=== PATIENT | female | born 1945 | race Caucasian/White ===

== ENCOUNTER 2019-07-16 08:36 | Outpatient (CLI) | payer MEDICARE, BC | END 2019-07-16 23:59 | disposition home or self-care (01) | LOC: CFH 08:36 | PROVIDERS: ATTEND Internal Medicine Cardiovascular Disease | DX: I08.1 Rheumatic disorders of both mitral and tricuspid valves (principal); E78.5 Hyperlipidemia, unspecified; I50.9 Heart failure, unspecified; Z85.3 Personal history of malignant neoplasm of breast | CPT/HCPCS: 93306 ==

== ENCOUNTER → 2020-07-18 | Outpatient (CLI) | payer MEDICARE, BC ==
[~2020-07-18] MED LIST: OMNIPAQUE 350 MG/ML, 100ML BOTTLE ONE
== END | disposition home or self-care (01) ==
LOC: CFH 11:37
PROVIDERS: ATTEND Family Medicine
DX: K76.0 Fatty (change of) liver, not elsewhere classified (principal); K43.9 Ventral hernia without obstruction or gangrene; M51.36 Other intervertebral disc degeneration, lumbar region; R18.8 Other ascites
CPT/HCPCS: 74177; 82565; Q9967

== ENCOUNTER 2020-11-24 09:14 | Day surgery (SDC) | payer MEDICARE, BC ==
[~2020-11-24] VITALS: Ht 157.5 cm; Wt 49.0 kg
[2020-11-24 09:49] VITALS: BP 116/60
[2020-11-24] MEDS ORDERED: ASPI-963 PO (10:00)
[2020-11-24] MEDS ORDERED: CARV6.252 PO (10:00)
[2020-11-24] MEDS ORDERED: ATOR20TA37 PO (10:01)
[2020-11-24] MEDS ORDERED: GABA600T7 PO (10:01)
[2020-11-24] MEDS ORDERED: ESTER C PO (10:02)
[2020-11-24] MEDS ORDERED: NIAC500C8 PO (10:03)
[2020-11-24] MEDS ORDERED: CALCIUM PO (10:03)
[2020-11-24] MEDS ORDERED: D3 PO (10:04)
[2020-11-24 10:29] LABS: BASOPHILS % (AUTO) 1 % (0-1); EOSINOPHILS % (AUTO) 0 % (1-7); LYMPHOCYTES % (AUTO) 5 % (22-44); MEAN CORPUSCULAR HGB CONC 33.8 g/dL (32.4-35.8); MEAN PLATELET VOLUME 8.2 fL (7.4-10.4); MONOCYTES % (AUTO) 8 % (2-9); NEUTROPHILS % (AUTO) 86 % (42-75); PLATELET COUNT 162 x10^3/uL (130-400); RED BLOOD COUNT 4.08 x10^6/uL (3.82-5.3)
[2020-11-24] MEDS ORDERED: VERAPAMIL 2.5 MG/ML, 2ML ONE (10:31)
[2020-11-24] MEDS ORDERED: HEPARIN 1,000 UNITS/ML, 10ML ONE (10:31)
[2020-11-24] MEDS ORDERED: MIDAZOLAM 1 MG/ML, 2ML ONE (10:31)
[2020-11-24] MEDS ORDERED: LIDOCAINE-MPF 1%, 5ML ONE (10:31)
[2020-11-24] MEDS ORDERED: FENTANYL PF 100 MCG/2ML ONE (10:31)
[2020-11-24 10:36] LABS: ANION GAP 8 mmol/L (5-15); CALCIUM 9.1 mg/dL (8.5-10.1); CHLORIDE 109 mmol/L (98-107)
[2020-11-24] MEDS ORDERED: SODIUM CHLORIDE 0.9% 1,000 ML IV SCH (11:00)
== END 2020-11-24 14:45 | disposition home or self-care (01) ==
LOC: CACL 09:14
PROVIDERS: ATTEND Internal Medicine Cardiovascular Disease
DX: I34.0 Nonrheumatic mitral (valve) insufficiency (principal); I42.0 Dilated cardiomyopathy; I27.20 Pulmonary hypertension, unspecified; I10 Essential (primary) hypertension; E78.5 Hyperlipidemia, unspecified; Z79.82 Long term (current) use of aspirin; Z79.899 Other long term (current) drug therapy; Z85.3 Personal history of malignant neoplasm of breast; Z90.11 Acquired absence of right breast and nipple
CPT/HCPCS: 36415; 80048; 82803; 85025; 93460; 99156; 99157; C1769; C1894; J1644; J2250; J3010; Q9967

== ENCOUNTER 2020-12-15 10:37 | Outpatient (CLI) | payer MEDICARE, BC | END 2020-12-15 23:59 | disposition home or self-care (01) | LOC: LAB 10:37 | PROVIDERS: ATTEND Internal Medicine | DX: Z02.9 Encounter for administrative examinations, unspecified (principal) ==